=== PATIENT | male | born 1980 | race Caucasian/White ===

== ENCOUNTER → 2022-09-09 | Outpatient (CLI) | payer OTHER ==
[~2022-09-09] MED LIST: IOHEXOL 350 MG/ML 100ML INFUS..BTL IV ONE
== END | disposition home or self-care (01) ==
LOC: RAH 07:54
PROVIDERS: ATTEND Internal Medicine Cardiovascular Disease
DX: Q24.5 Malformation of coronary vessels (principal)
CPT/HCPCS: 75574; Q9967